=== PATIENT | female | born 1995 | race Hispanic/Latino ===

== ENCOUNTER 2024-08-09 13:14 | Emergency (ER) | payer MEDICAID ==
[~2024-08-09] VITALS: Ht 162.6 cm; Wt 95.2 kg
[2024-08-09] VITALS (8 sets, daily range): BP systolic 97–117; BP diastolic 53–77
[2024-08-09] MEDS ORDERED: DEXAMETHASONE SOD. PHOSPHATE 10 MG/ML VIAL IM ONE (14:05)
[2024-08-09] MEDS ORDERED: KETOROLAC TROMETHAMINE 30 MG/ML SDV IM ONE (14:05)
[2024-08-09] MEDS ORDERED: SYMBICORT1 AE1 IN (14:19)
[2024-08-09] MEDS ORDERED: MEDDOSEPAK PO (15:47)
== END 2024-08-09 16:56 | disposition home or self-care (01) ==
LOC: ED 13:14
DX: M54.42 Lumbago with sciatica, left side (principal)

== ENCOUNTER 2024-11-28 12:24 | Emergency (ER) | payer MEDICARE, MEDICAID ==
[~2024-11-28] VITALS: Ht 162.6 cm; Wt 100.0 kg
[~2024-11-28 12:24] MED LIST: MEDDOSEPAK PO; METHOCARBAMOL500 MG PO; SYMBICORT1 AE1 IN; TRAMADOL HCL E100 M1 PO
[2024-11-28] MEDS ORDERED: CHERATUSSIN PO (14:17)
[2024-11-28] MEDS ORDERED: AMOX/K CLAV875 M1 PO (14:17)
[2024-11-28 14:40] VITALS: BP 126/70
== END 2024-11-28 14:40 | disposition home or self-care (01) ==
LOC: ED 12:24
DX: J32.9 Chronic sinusitis, unspecified (principal); J45.909 Unspecified asthma, uncomplicated; Z20.822 Contact with and (suspected) exposure to COVID-19

== ENCOUNTER 2024-12-21 07:15 | Emergency (ER) | payer MEDICARE, OTHER ==
[~2024-12-21] VITALS: Ht 162.6 cm; Wt 99.7 kg
[~2024-12-21 07:15] MED LIST changes: +AMOX/K CLAV875 M1 PO; +CHERATUSSIN PO
[2024-12-21 08:11] LABS: BASO% 0.5 % (0-3); EOS% 4.3 % (0-8); HEMATOCRIT 41.6 % (37.0-47.0); HEMOGLOBIN 13.4 g/dl (12.0-16.0); IMMATURE GRANULOCYTES 0.6 % (0.0-5.0); LYMPH% 13.1 % (15-41); MEAN CORPUSCULAR HGB 26.7 pG CALC (26.0-32.0); MEAN CORPUSCULAR HGB CONC 32.2 g/dL CAL (32.0-36.0); MONO% 8.3 % (2-13); NEUT# 7.41 thou/uL (2.00-7.15); NEUT% 73.2 % (42-76); RED BLOOD COUNT 5.01 mill/uL (4.20-5.60); RED CELL DISTRI WIDTH 13.3 % (11.5-15.5)
[2024-12-21 08:23] LABS: ALBUMIN 4.1 g/dL (3.2-5.0); ALKALINE PHOSPHATASE 120 u/l (38-126); ANION GAP 10 (6-22 (CALC)); BILIRUBIN, TOTAL 0.7 mg/dL (0.02-1.3); BUN 9 mg/dL (7-17); BUN/CREATININE RATIO 14 (12-20 (CALC)); CARBON DIOXIDE 24 mmol/l (22-30); CHLORIDE 106 mmol/l (95-108); CREATININE 0.7 mg/dL (0.5-1.0); ESTIMATED GFR 121 ML/MIN (>=90 (CALC)); POTASSIUM 3.9 mmol/l (3.5-5.1); SGOT/AST 32 u/l (14-36); SODIUM 136 mmol/l (137-146); TOTAL PROTEIN 7.9 g/dL (6.3-8.2)
[2024-12-21] MEDS ORDERED: DOXYCYCLINE100 MG PO (08:48)
[2024-12-21 09:08] VITALS: BP 121/81
== END 2024-12-21 09:11 | disposition home or self-care (01) ==
LOC: ED 07:15
PROVIDERS: Family Medicine
DX: J06.9 Acute upper respiratory infection, unspecified (principal); J45.909 Unspecified asthma, uncomplicated; Z20.822 Contact with and (suspected) exposure to COVID-19